=== PATIENT | female | born 1985 | race Caucasian/White ===

== ENCOUNTER 2019-05-05 15:32 | Emergency (ER) | payer OTHER ==
--- NOTE | 2019-05-05 16:11 | UC ---
Lower Extremity/Ankle HPI - HPI Summary HPI Summary: LEFT ANKLE INJURY. LAST RODNEY PT TWISTED HER ANKLE WHILE WALKING. PAIN AND MILD SWELLING STATED TODAY. HAS BEEN ICING - History of Current Complaint Chief Complaint: UCLowerExtremity Stated Complaint: LT ANKLE COMPLAINT Time Seen by Provider: 05/05/19 15:39 Hx Obtained From: Patient Hx Last Menstrual Period: 03/27/19, PT IS ON THE BCP THAT GIVES A PERIOD [id number] ?: No Onset/Duration: Sudden Onset, Lasting Hours Severity Initially: Severe Severity Currently: Severe Pain Intensity: 7 Aggravating Factor(s): Standing, Ambulation Alleviating Factor(s): Rest Able to Bear Weight: Yes - Allergies/Home Medications Allergies/Adverse Reactions: Allergies Allergy/AdvReac Type Severity Reaction Status Date / Time cefaclor [From Ceclor] Allergy Unknown whole body Verified 05/05/19 15:40 swells Home Medications: Home Medications Controll Pill 1 tab PO DAILY 05/05/19 [History] PMH/Surg Hx/FS Hx/Imm Hx Previously Healthy: Yes - Surgical History Surgical History: Yes Surgery Procedure, Year, and Place: OVARIAN CYST REMOVAL 2015 - Family History Known Family History: Positive: Cardiac Disease, Hypertension - Social History Alcohol Use: None Substance Use Type: None Smoking Status (MU): Never Smoked Tobacco Review of Systems All Other Systems Reviewed And Are Negative: Yes Musculoskeletal: Positive: Arthralgia, Myalgia Is Patient Immunocompromised?: No Physical Exam Triage Information Reviewed: Yes Appearance: Well-Appearing, Pain Distress, Obese Vital Signs: Initial Vital Signs Temp 98.8 F 05/05/19 15:42 Pulse 88 05/05/19 15:42 Resp 18 05/05/19 15:42 BP 127/59 05/05/19 15:42 Pulse Ox 100 05/05/19 15:42 Vital Signs Reviewed: Yes Eye Exam: Normal ENT Exam: Normal Dental Exam: Normal Neck exam: Normal Respiratory Exam: Normal Respiratory: Positive: Chest non-tender, Lungs clear, Normal breath sounds Cardiovascular Exam: Normal Cardiovascular: Positive: RRR, No Murmur, Pulses Normal Abdominal Exam: Normal Abdomen Description: Positive: Nontender, No Organomegaly, Soft Bowel Sounds: Positive: Present Musculoskeletal: Positive: Strength Intact, ROM Intact, Edema @ - mild around the lateral maleous Neurological Exam: Normal Psychological Exam: Normal Skin Exam: Normal Lower Extremity Course/Dx - Course Course Of Treatment: hx obtained, exam performed ,meds reviewed, pricila wrap and gel splint applied, patient is able to bear weight and ROM is not limited. mild swelling, no pain with palpation. follow up if symtpoms worsen. - Differential Dx/Diagnosis Differential Diagnosis/HQI/PQRI: Sprain, Strain Provider Diagnosis: High ankle sprain Discharge - Sign-Out/Discharge Documenting (check all that apply): Patient Departure All imaging exams completed and their final reports reviewed: No Studies - Discharge Plan Condition: Stable Disposition: HOME Patient Education Materials: Ankle Sprain (DC) Referrals: No Primary Care Phys,NOPCP [Primary Care Provider] - Additional Instructions: 1. use the pricila warp and the gel splint for support, elevate foot at rest 2. Follow up if not improving in one week - Billing Disposition and Condition Condition: STABLE Disposition: Home - Attestation Statements Provider Attestation: This patient was not seen by me. I was available for consult. ALEJANDRO
== END 2019-05-05 16:13 | disposition home or self-care (01) ==
LOC: UCCORT 15:32
DX: S93.402A Sprain of unspecified ligament of left ankle, initial encounter (principal); X50.1XXA Overexertion from prolonged static or awkward postures, initial encounter; Y93.01 Activity, walking, marching and hiking; Y92.9 Unspecified place or not applicable
CPT/HCPCS: 99203; G0463